=== PATIENT | male | born 1960 | race Caucasian/White ===

== ENCOUNTER 2016-07-18 08:53 | Emergency (ER) | payer OTHER ==
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
== END 2016-07-18 12:13 | disposition home or self-care (01) ==
LOC: ER 08:53
DX: T14.8 Other injury of unspecified body region (principal); R10.9 Unspecified abdominal pain; E78.00 Pure hypercholesterolemia, unspecified; I10 Essential (primary) hypertension; V49.40XA Driver injured in collision with unspecified motor vehicles in traffic accident, initial encounter